=== PATIENT | female | born 1995 | race Caucasian/White ===

== ENCOUNTER 2024-12-08 09:21 | Outpatient (AMB) | payer MEDICAID, SELFPAY ==
[2024-12-08 09:27] VITALS: BP 109/68; PULSE 76; RESP 16; TEMP 36.6; O2SAT 97; BMI 28.7
--- NOTE | 2024-12-08 09:27 | OBCLNT_ITS ---
Vital Signs 12/08/24 09:27 Height 1.63 m Height Method Stated Weight 75.92 kg Weight Measurement Method Standing Scale BMI 28.7 BP 109/68 Blood Pressure Source Automatic Cuff Blood Pressure Location Left Upper Arm Position Sitting Respiration 16 Pulse 76 Pulse Source Monitor Temp 97.8 F Temp Source Oral Pulse Oximetry (%) 97 Oxygen Delivery Method Room Air Allergies/Home Meds Allergies & Medications Allergies No Known Allergies Allergy (Verified 12/08/24 09:31) Medication Reconciliation No Known Home Medications 12/08/24 [History Confirmed 12/08/24] Intake Visit Data Collection New Patient or Established: New Patient (never been to [facility]) Reason for Visit:: TRANSFER INITIAL CARE Seen by Clinical Staff ONLY (RN/MA): No Neurodiagnostic Technologist Required: No Do You Feel Safe at Home: Yes Authorities Contacted: N/A PCP or OBGYN visit in last 3 months: Yes Hx Now: No Are you currently on any form of Control: No Last menstrual period: 07/02/24 Pain Present Currently: No Pain Scale Used: [place]-Brooks/Numerical Pain scale:: 0 Smoking Status Smoking Status: Never smoker Questionnaires Covid-19 Vaccine Questionnaire Has patient been vacinated for Covid-19 Have you been vacinated for Covid-19: Yes PHQ-9 PHQ-2 Over the last 2 weeks, how often have you been bothered by any of the following problems? 1. Little interest or pleasure in doing things: not at all 2. Feeling down, depressed, or hopeless: not at all Total score: 0 PHQ-9 3. Trouble falling or staying asleep, or sleeping too much: Not at all 4. Feeling tired or having little energy: Not at all 5. Poor appetite or overeating: Not at all 6. Feeling bad about yourself - or that you are a failure or have let yourself or your family down: Not at all 7. Trouble concentrating on things, such as reading the newspaper or watching television: Not at all 8. Moving or speaking so slowly that other people could have noticed? - Or the opposite - being so fidgety or restless that you have been moving around a lot more than usual: not at all 9. Thoughts that you would be better off or of hurting yourself in some way: Not at all Total score: 0 Source: Developed by Drs. Jorge Alberto Castillo, Michelle Grullon, Chris Cuevas and colleagues, with an educational jase from [employer] Depression screen completed yes Social History Living Situation History Marital Status: Life Partner Lives With: Family Housing: House Tobacco History Smoking Status: Never smoker Second Hand Smoke Exposure: No Alcohol History Alcohol Intake: Former Alcohol Intake Frequency: holidays/special occasions only Domestic Abuse History Do You Feel Safe at Home: Yes History of Present Illness HPI Narrative 29Years old at gestational age?based on last menstrual period of dated?07/02/2024 and US done 11/22/2024 at 20.5 weeks .EDC is 04/08/2025 No complaints so far Here for first visit at [facility]/ Ob transfer from [facility] LPS LMP Ultrasound medical problems Allergies Surgical history social history OB Initial Visit Menstrual History Menstrual reliability: definite Flow: normal Menstrual regularity: regular Monthly: Yes Age at menarche: 14 On control pills at conception: No Associated symptoms (LMP): Denies amenorrhea, nausea, vomiting, fatigue, breast tenderness, urinary frequency, irritability, bloating or other OB History : 1 Infection History & Risk Evaluation History of STDs: none Genetic Screening & History Genetic Screening/Teratology Counseling - Includes patient, baby's father, or an yone in either family with: 1. Patient's age 35 years or older as of estimated date of delivery: No 2. Thalassemia (Wolof, Maori, Mediterranean, or Background); MCV less than 80: No 3. Neural Tube Defect (Meningomyelocele, Spina Bifida, or Anencephaly): No 4. Congenital Heart Defect: No 5. Down Syndrome: No 6. Darshan-Sachs (Ashkenazi Baptist, Cajun, Anguillan [place]): No 7. Sebastien Disease (Ashkenazi Baptist): No 8. Familial Dysautonomia (Ashkenazi Baptist): No 9. Sickle Cell Disease or Trait (): No 10. Hemophilia or other blood disorders: No 11. Muscular Dystrophy: No 12. Cystic Fibrosis: No 13. Costilla's Chorea: No 14. Mental Retardation/Autism: No 15. Other inherited genetic or chromosomal disorder: No 16. Maternal Metabolic Disorder (EG,TYPE 1 Diabetes, PKU): No 17. Patient or baby's father had a child with defects not listed above: No 18. Recurrent loss or a stillbirth: No 19. Medications (including supplements, vitamins, herbs or otc drugs)/illicit/recreational drugs/alcohol since last menstrual period: No 20. Any other: No Infection History 1. Live with someone with TB or exposed to TB: No 2. Rash or viral illness since last menstrual period: No 3. Hepatitis B,C: No Other (see comments) Source: [employer] Review of Systems Constitutional Constitutional: Denies fatigue Gastrointestinal Gastrointestinal: Denies bloating, Denies nausea and Denies vomiting Genitourinary Genitourinary: Denies amenorrhea and Denies urinary frequency Psychiatric Psychiatric: Denies irritability Endocrine Endocrine: Denies fatigue Office Procedures OBC Clinic LOC & Office Proc's Nursing/Assessment Patient Status: Initial/New Patient OB Clinic Nursing Assessment: Medication Reconciliation, Update PMH in EMR and Vital Signs OB Clinic Coordination of Care: Complex Care and Chronic Disease 1-5, Consent,records obtained, informed consent, Education Simp Pt/Fam, Lab and Imaging orders, Results/Orders obtained and Staff clarify orders Special Needs: Heart tones New Patient Charge New Patient Point Assignment: [id number] New Patient Point Charge: PRODUCT SCIENTIST Level 4 ([id number]) Assessment & Plan Diagnosis / Problem List (1) : Status: Acute
--- NOTE | 2024-12-08 09:49 | OBCLNT_ITS ---
<Statement entered by Ann Brenner MD - 12/11/24 09:34> this is a second same document Vital Signs 12/08/24 09:27 12/08/24 10:14 Height 1.63 m Height Method Stated Weight 75.92 kg Weight Measurement Method Standing Scale BMI 28.7 BP 109/68 109/68 Blood Pressure Source Automatic Cuff Blood Pressure Location Left Upper Arm Position Sitting Respiration 16 16 Pulse 76 76 Pulse Source Monitor Temp 97.8 F 97.8 F Temp Source Oral Pulse Oximetry (%) 97 97 Oxygen Delivery Method Room Air Allergies/Home Meds Allergies & Medications Allergies No Known Allergies Allergy (Verified 12/08/24 09:31) Medication Reconciliation No Known Home Medications 12/08/24 [History Confirmed 12/08/24] Intake Visit Data Collection New Patient or Established: New Patient (never been to [facility]) Reason for Visit:: care Do You Feel Safe at Home: Yes Authorities Contacted: N/A PCP or OBGYN visit in last 3 months: No Smoking Status Smoking Status: Never smoker Questionnaires Covid-19 Vaccine Questionnaire Has patient been vacinated for Covid-19 Have you been vacinated for Covid-19: Yes PHQ-9 PHQ-2 Over the last 2 weeks, how often have you been bothered by any of the following problems? 1. Little interest or pleasure in doing things: not at all PHQ-9 3. Trouble falling or staying asleep, or sleeping too much: Not at all 4. Feeling tired or having little energy: Not at all 5. Poor appetite or overeating: Not at all 6. Feeling bad about yourself - or that you are a failure or have let yourself or your family down: Not at all 7. Trouble concentrating on things, such as reading the newspaper or watching television: Not at all 8. Moving or speaking so slowly that other people could have noticed? - Or the opposite - being so fidgety or restless that you have been moving around a lot more than usual: not at all Source: Developed by Drs. Jorge Alberto Castillo, Michelle Grullon, Chris Cuevas and colleagues, with an educational jase from [employer]. Social History Living Situation History Marital Status: Life Partner Lives With: Family Housing: House Tobacco History Smoking Status: Never smoker Second Hand Smoke Exposure: No Alcohol History Alcohol Intake: Former Alcohol Intake Frequency: holidays/special occasions only Domestic Abuse History Do You Feel Safe at Home: Yes History of Present Illness HPI Narrative ?29 Years old at gestational age22.5 weeks based on last menstrual period of dated 07/02/2024 and confirmed by US at 20.5 weeks on . 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 Past Medical History: Yes Psychiatric Problems (generalized Anxiety Disorder / early on medication and now stoppe) OB Initial Visit OB Flowsheet OB Flowsheet Initial Weight: Not Recorded Date -?-?-?-?-?-?-?-?-?-?-?-?- EGA Weight BP Alb Glu CTX Pres Fundal ht FHR Mov Dilation Station Effacement Hx Notes Visit Note 12/08/24 -?-?-?-?-?-?-?-?-?-?-?-?- 22w 5d 75.92 kg 109/68 109/68 23 148 active ordered RPR,CBC and GTT 1 hour for 24 to 28 weeks light ambulator y duty note / has anatomy scan on 12/26/2024 and will follow in 4 weeks Menstrual History Menstrual reliability: definite Flow: normal Menstrual regularity: regular OB History : 1 Para: 0 Infection History & Risk Evaluation History of STDs: none HIV risk evaluation: low risk Hepatitis B risk evaluation: low risk Patient or partner has history of Genital Herpes: No Genetic Screening & History Genetic Screening/Teratology Counseling - Includes patient, baby's father, or anyone in either family with: 1. Patient's age 35 years or older as of estimated date of delivery: No 2. Thalassemia (Latvian, Nicaraguan, Mediterranean, or Background); MCV less than 80: No 3. Neural Tube Defect (Meningomyelocele, Spina Bifida, or Anencephaly): No 4. Congenital Heart Defect: No 5. Down Syndrome: No 6. Darshan-Sachs (Ashkenazi Hindu, Cajun, Turkish Cameroonian): No 7. Sebastien Disease (Ashkenazi Hindu): No 8. Familial Dysautonomia (Ashkenazi Hindu): No 9. Sickle Cell Disease or Trait (): No 10. Hemophilia or other blood disorders: No 11. Muscular Dystrophy: No 12. Cystic Fibrosis: No 13. Bosque's Chorea: No 14. Mental Retardation/Autism: No 15. Other inherited genetic or chromosomal disorder: No 16. Maternal Metabolic Disorder (EG,TYPE 1 Diabetes, PKU): No 17. Patient or baby's father had a child with defects not listed above: No 18. Recurrent loss or a stillbirth: No 19. Medications (including supplements, vitamins, herbs or otc drugs)/illicit/recreational drugs/alcohol since last menstrual period: Yes ( on celexa and propranalol early / Generalized Anxiety Disorder) Infection History Other (see comments) Source: [employer] Review of Systems Review of Systems Narrative Review of Systems: Reviewed all 14 point review of systems and all is negative except as noted Systems Reviewed: All systems reviewed, normal except as documented Exam Narrative Physical exam: Size equal to dates uterus non tender bedside US shows active fetus non tender FHR is 148bpm feta presentation is variable Office Procedures OBC Clinic LOC & Office Proc's Nursing/Assessment Patient Status: Initial/New Patient OB Clinic Nursing Assessment: Medication Reconciliation, Update PMH in EMR and Vital Signs OB Clinic Coordination of Care: Complex Care and Chronic Disease 1-5, Consent,records obtained, informed consent, Education Simp Pt/Fam, Lab and Imaging orders, Results/Orders obtained and Staff clarify orders Special Needs: Heart tones New Patient Charge New Patient Point Assignment: 1134 New Patient Point Charge: MODEL SET ARTIST Level 4 ([id number]) Assessment & Plan Diagnosis / Problem List (1) : Status: Acute (2) Generalized anxiety disorder: Status: Acute Plan plan RPR and CBC and i hour GTT between 24 and 28 weeks Light duty and follow up in 4 weeks Additional Assessment ?29 Years old at gestational age22.5 weeks based on last menstrual period of dated 07/02/2024 and confirmed by US at 20.5 weeks on . 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 and would like to be on light duty and stay in [place] Additional Plan as above Follow Up: 4 Weeks (light duty letter given )
[2024-12-08 10:14] VITALS: BP 109/68; PULSE 76; RESP 16; TEMP 36.6; O2SAT 97
== END 2024-12-08 09:59 | disposition home or self-care (01) ==
LOC: HODSOBC 09:21
PROVIDERS: Supervising Provider Obstetrics & Gynecology; Visit Provider Obstetrics & Gynecology
DX: O09.892 Supervision of other high risk pregnancies, second trimester (principal); O99.342 Other mental disorders complicating pregnancy, second trimester; F41.1 Generalized anxiety disorder; Z3A.22 22 weeks gestation of pregnancy
CPT/HCPCS: 99204; G0463

== ENCOUNTER 2024-12-28 15:10 | Outpatient (AMB) | payer MEDICAID, SELFPAY ==
[2024-12-28 15:17] VITALS: BP 119/70; PULSE 74; RESP 74; TEMP 36.6; O2SAT 98; BMI 29.0
--- NOTE | 2024-12-28 15:17 | AMB.OBVISIT ---
Vital Signs 12/28/24 15:17 Height 1.63 m Height Method Stated Weight 77.281 kg Weight Measurement Method Standing Scale BMI 29.0 BP 119/70 Blood Pressure Source Automatic Cuff Blood Pressure Location Right Upper Arm Position Sitting Respiration 74 H Pulse 74 Pulse Source Monitor Temp 97.8 F Temp Source Temporal Artery Scan Pulse Oximetry (%) 98 Oxygen Delivery Method Room Air Allergies/Home Meds Allergies & Medications Allergies No Known Allergies Allergy (Verified 12/28/24 15:17) Medication Reconciliation ferrous sulfate 325 mg (65 mg iron) tablet 325 mg PO QDAY #60 tabs 12/28/24 [Rx] Intake Visit Data Collection New Patient or Established: Established Patient (seen at [facility] within 3 years) Reason for Visit:: OBC Seen by Clinical Staff ONLY (RN/MA): No Quality Assurance Assistant Required: No Do You Feel Safe at Home: Yes Authorities Contacted: N/A PCP or OBGYN visit in last 3 months: Yes Date of Last PCP or OBGYN visit: 12/08/24 Hx Now: Yes Are you currently on any form of Control: No Pain Present Currently: No Pain Scale Used: [place]-Brooks/Numerical Pain scale:: 0 Smoking Status Smoking Status: Never smoker Immunizations Flu Vaccine in the Last 12 Months: No Flu Vaccine Exclusion Criteria: No Exclusion Criteria Questionnaires Covid-19 Vaccine Questionnaire Has patient been vacinated for Covid-19 Have you been vacinated for Covid-19: No PHQ-9 PHQ-2 Over the last 2 weeks, how often have you been bothered by any of the following problems? 1. Little interest or pleasure in doing things: not at all 2. Feeling down, depressed, or hopeless: not at all Total score: 0 PHQ-9 3. Trouble falling or staying asleep, or sleeping too much: Not at all 4. Feeling tired or having little energy: Not at all 5. Poor appetite or overeating: Not at all 6. Feeling bad about yourself - or that you are a failure or have let yourself or your family down: Not at all 7. Trouble concentrating on things, such as reading the newspaper or watching television: Not at all 8. Moving or speaking so slowly that other people could have noticed? - Or the opposite - being so fidgety or restless that you have been moving around a lot more than usual: not at all 9. Thoughts that you would be better off or of hurting yourself in some way: Not at all Total score: 0 If you checked off any problems, how difficult have these problems made it for you to do your work, take care of things at home, or get along with other people?: not difficult at all Source: Developed by Drs. Jorge Alberto Castillo, Michelle Grullon, Chris Cuevas and colleagues, with an educational jase from [employer]. Depression screen completed yes Social History Living Situation History Marital Status: Lives With: Family Housing: House Tobacco History Smoking Status: Never smoker Second Hand Smoke Exposure: No Alcohol History Alcohol Intake: Former Alcohol Intake Frequency: holidays/special occasions only Domestic Abuse History Do You Feel Safe at Home: Yes PRACTICING MD ANESTHESIOLOGIST: Past Medical History Past Medical History: Yes Psychiatric Problems (generalized Anxiety Disorder / early on medication and now stoppe) Care OB Visit Log OB Flowsheet Initial Weight: Not Recorded Date <del>?</del> EGA Weight BP Alb Glu CTX Pres Fundal ht FHR Mov Dilation Station Effacement Hx Notes Visit Note 12/08/24 <del>?</del> 22w 5d 75.92 kg 109/68 109/68 23 148 active ordered RPR,CBC and GTT 1 hour for 24 to 28 weeks light ambulatory duty note / has anatomy scan on 12/26/2024 and will follow in 4 weeks 12/28/24 <del>?</del> 25w 4d 77.281 kg 119/70 26 48 active BERHANE Calculator Estimated Delivery Date Method Current WG Current Estimate 04/08/25 LMP (Certain) 25w 4d Other Estimates 04/06/25 Ultrasound #1 25w 6d Notes Visit Date: 12/28/24 Last Updated by: Ann Brenner MD ?29 Years old at gestational age25.4 weeks based on last menstrual period of dated 07/02/2024 and confirmed by US at 20.5 weeks on . No complaints so far Here for f/u visit/ transfer from [facility] / Excuse from dental X ray exposure Her one hour GTT is 149 and will order 3 hour GTT /HbA1c is 4.9 Hb is 9 and will order oral iron RPR is non reactive Follow up in 4 weeks LPS 1 year ago LMP as above Ultrasound as above medical problems ROEL Allergies as noted Surgical history none social history none / except anxious about working outside [place] office and would like to be on light duty and stay in [place] Office Procedures OBC Clinic LOC & Office Proc's Nursing/Assessment Patient Status: Established Patient OB Clinic Nursing Assessment: Medication Reconciliation, Update PMH in EMR and Vital Signs OB Clinic Coordination of Care: Complex Care and Chronic Disease 1-5, Education Complex Pt/Fam, Consent,records obtained, informed consent, Lab and Imaging orders, Results/Orders obtained and Staff clarify orders Special Needs: Heart tones Established Patient Charge Established Patient Point Assignment: 140 Established Patient Point Charge: EP Level 4 (120-155) Assessment & Plan Diagnosis / Problem List (1) : Status: Acute Qualifiers: Weeks of gestation: 25 weeks Qualified Code(s): Z3A.25 - 25 weeks gestation of (2) Generalized anxiety disorder: Status: Acute (3) Anemia affecting : Status: Acute Plan order 3 hour GTT for abnormal 1 hour GTT also order oral iron 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
== END 2024-12-28 15:49 | disposition home or self-care (01) ==
LOC: HODSOBC 15:10
PROVIDERS: Supervising Provider Obstetrics & Gynecology; Visit Provider Obstetrics & Gynecology
DX: O09.892 Supervision of other high risk pregnancies, second trimester (principal); O99.342 Other mental disorders complicating pregnancy, second trimester; F41.1 Generalized anxiety disorder; O99.012 Anemia complicating pregnancy, second trimester; Z3A.25 25 weeks gestation of pregnancy
CPT/HCPCS: 99214; G0463

== ENCOUNTER 2025-02-07 10:19 | Outpatient (AMB) | payer MEDICAID, SELFPAY ==
--- NOTE | 2025-02-07 10:47 | OBCLNT_ITS ---
Vital Signs 02/07/25 10:55 Height 1.63 m Height Method Stated Weight 82.611 kg Weight Measurement Method Standing Scale BMI 31.1 BP 99/64 Blood Pressure Source Automatic Cuff Blood Pressure Location Left Upper Arm Position Sitting Respiration 16 Pulse 79 Pulse Source Monitor Temp 97.9 F Temp Source Oral Pulse Oximetry (%) 97 Oxygen Delivery Method Room Air Allergies/Home Meds Allergies & Medications Allergies No Known Allergies Allergy (Verified 02/07/25 10:56) Medication Reconciliation ferrous sulfate 325 mg (65 mg iron) tablet 325 mg PO QDAY #60 tabs 12/28/24 [Rx Confirmed 02/07/25] Immunizations Immunizations Flu Vaccine in the Last 12 Months: Yes Flu Vaccine Exclusion Criteria: Already Received Care OB Visit Log OB Flowsheet Initial Weight: Not Recorded Date -?-?-?-?-?-?-?-?-?-?-?-?- EGA Weight BP Alb Glu CTX Pres Fundal ht FHR Mov Dilation Station Effacement Hx Notes Visit Note 12/08/24 -?-?-?-?-?-?-?-?--?-?-?-?- 22w 5d 75.92 kg 109/68 109/68 23 148 active ordered RPR,CBC and GTT 1 hour for 24 to 28 weeks light ambulator y duty note / has anatomy scan on 12/26/2024 and will follow in 4 weeks 12/28/24 -?-?-?-?-?-?-?-?-?-?-?-?- 25w 4d 77.281 kg 119/70 26 48 active 01/23/25 -?-?-?-?-?-?-?-?-?-?-?-?- 29w 2d 80.343 kg 111/72 29 147 active 02/07/25 -?-?-?-?-?-?-?-?-?-?-?-?- 31w 3d 82.611 kg 99/64 31 142 active BERHANE Calculator Estimated Delivery Date Method Current WG Current Estimate 04/08/25 LMP (Certain) 32w 4d Other Estimates 04/06/25 Ultrasound #1 32w 6d Notes Visit Date: 02/07/25 Last Updated by: Ann Brenner MD 29 years old at 31.3 weeks / confirmed by a 20 week US / anemia Hb was 9 / One hour GTT was 149 / 3 hour is normal on 01/18/2025/ CBC on 02/01/2025 Hb is 10.2 / RPR is NR Flu vaccine received last visit / kick count counselled / revised work restriction given last visit / feels sore in he pelvic/ pubic area/ advised gentle stretching exercises / continue oral iron / continue kick count and labor precautions / uterus is non tender Visit Date: 01/23/25 Last Updated by: Ann Brenner MD 29 years old at 29.2 weeks / confirmed by a 20 week US / anemia Hb was 9 / One hour GTT was 149 / 3 hour is normal on 01/18/2025/ CBC before next visit Flu vaccine today / kick count counselled / revised work restriction given Visit Date: 12/28/24 Last Updated by: Ann Brenner MD ?29 Years old at gestational age25.4 weeks based on last menstrual period of dated 07/02/2024 and confirmed by US at 20.5 weeks on . 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 and would like to be on light duty and stay in [place] Office Procedures OBC Clinic LOC & Office Proc's Nursing/Assessment Patient Status: Established Patient OB Clinic Nursing Assessment: Medication Reconciliation, Update PMH in EMR and Vital Signs OB Clinic Coordination of Care: Complex Care and Chronic Disease 1-5, Consent,records obtained, informed consent, Education Simp Pt/Fam, 1 Ins Authorization, Lab and Imaging orders, Results/Orders obtained and Staff clarify orders Special Needs: Heart tones Established Patient Charge Established Patient Point Assignment: 150 Established Patient Point Charge: EP Level 4 (120-155) Assessment & Plan Diagnosis / Problem List (1) Anemia affecting : Status: Acute Qualifiers: Trimester: third trimester Qualified Code(s): O99.013 - Anemia complicating , third trimester (2) Generalized anxiety disorder: Status: Acute (3) : Status: Acute Qualifiers: Weeks of gestation: 25 weeks Qualified Code(s): Z3A.25 - 25 weeks gestation of Assessment and Plan: Size equal to dates uterus non tender no contractions non tender FHR is 142 Plan 29 years old at 31.3 weeks / confirmed by a 20 week US / anemia Hb was 9 / One hour GTT was 149 / 3 hour is normal on 01/18/2025/ CBC on 02/01/2025 Hb is 10.2 / RPR is NR Flu vaccine received last visit / kick count counselled / revised work restriction given last visit / feels sore in he pelvic/ pubic area/ advised gentle stretching exercises / continue oral iron / continue kick count and labor precautions Additional Plan Follow Up: 2 to 3 weeks
[2025-02-07 10:55] VITALS: BP 99/64; PULSE 79; RESP 16; TEMP 36.6; O2SAT 97; BMI 31.1
== END 2025-02-07 11:09 | disposition home or self-care (01) ==
PROVIDERS: Supervising Provider Obstetrics & Gynecology; Visit Provider Obstetrics & Gynecology
DX: O09.893 Supervision of other high risk pregnancies, third trimester (principal); O99.013 Anemia complicating pregnancy, third trimester; O99.343 Other mental disorders complicating pregnancy, third trimester; F41.1 Generalized anxiety disorder; Z3A.31 31 weeks gestation of pregnancy
CPT/HCPCS: 99214; G0463

== ENCOUNTER 2025-02-27 09:07 | Outpatient (AMB) | payer MEDICAID, SELFPAY ==
--- NOTE | 2025-02-27 09:22 | OBCLNT_ITS ---
Vital Signs 02/27/25 09:23 Height 1.63 m Height Method Stated Weight 8391.459 g Weight Measurement Method Standing Scale BMI 3.1 BP 128/74 Blood Pressure Source Automatic Cuff Blood Pressure Location Right Upper Arm Position Sitting Respiration 18 Pulse 87 Pulse Source Monitor Temp 98.0 F Temp Source Temporal Artery Scan Pulse Oximetry (%) 97 Oxygen Delivery Method Room Air Allergies/Home Meds Allergies & Medications Allergies No Known Allergies Allergy (Verified 02/27/25 09:24) Medication Reconciliation ferrous sulfate 325 mg (65 mg iron) tablet 325 mg PO QDAY #60 tabs 12/28/24 [Rx Confirmed 02/27/25] Immunizations Immunizations Flu Vaccine in the Last 12 Months: No Flu Vaccine Exclusion Criteria: No Exclusion Criteria Care OB Visit Log OB Flowsheet Initial Weight: Not Recorded Date -?-?-?-?-?-?-?-?-?-?-?-?- EGA Weight BP Alb Glu CTX Pres Fundal ht FHR Mov Dilation Station Effacement Hx Notes Visit Note 12/08/24 -?-?-?-?-?-?-?-?-?-?-?-?- 22w 5d 75.92 kg 109/68 109/68 23 148 active ordered RPR,CBC and GTT 1 hour for 24 to 28 weeks light ambulator y duty note / has anatomy scan on 12/26/2024 and will follow in 4 weeks 12/28/24 -?-?-?-?-?-?-?-?-?-?-?-?- 25w 4d 77.281 kg 119/70 26 48 active 01/23/25 -?-?-?-?-?-?-?-?-?-?-?-?- 29w 2d 80.343 kg 111/72 29 147 active 02/07/25 -?-?-?-?-?-?-?-?-?-?-?-?- 31w 3d 82.611 kg 99/64 31 142 active 02/27/25 -?-?-?-?-?-?-?-?-?-?-?-?- 34w 2d 8391.459 g 128/74 34 144 active 29 years old at 31.3 weeks / confirmed by a 20 week US / anemia Hb was 9 / One hour GTT was 149 / 3 hour is normal on 01/18/2025/ CBC on 02/01/2025 Hb is 10.2 / RPR is NR [facility] Calculator Estimated Delivery Date Method Current WG Current Estimate 04/08/25 LMP (Certain) 34w 2d Other Estimates 04/06/25 Ultrasound #1 34w 4d Notes Visit Date: 02/27/25 Last Updated by: Ann Brenner MD today 34.2 weeks / h/o anemia / she states she has difficulty sleeping and has to get up often to void/ she can go on disability from Mar [id number] / she can get a breast pump / no contractions / urine frequency could be due to head pressing on the bladder / plan UA/ possible c/s Visit Date: 02/07/25 Last Updated by: Ann Brenner MD 29 years old at 31.3 weeks / confirmed by a 20 week US / anemia Hb was 9 / One hour GTT was 149 / 3 hour is normal on 01/18/2025/ CBC on 02/01/2025 Hb is 10.2 / RPR is NR Flu vaccine received last visit / kick count counselled / revised work restriction given last visit / feels sore in he pelvic/ pubic area/ advised gentle stretching exercises / continue oral iron / continue kick count and labor precautions / uterus is non tender Visit Date: 01/23/25 Last Updated by: Ann Brenner MD 29 years old at 29.2 weeks / confirmed by a 20 week US / anemia Hb was 9 / One hour GTT was 149 / 3 hour is normal on 01/18/2025/ CBC before next visit Flu vaccine today / kick count counselled / revised work restriction given Visit Date: 12/28/24 Last Updated by: Ann Brenner MD ?29 Years old at gestational age25.4 weeks based on last menstrual period of dated 07/02/2024 and confirmed by US at 20.5 weeks on . No complaints so far Here for f/u visit/ transfer from [facility] / Excuse from dental X ray exposure Her one hour GTT is 149 and will order 3 hour GTT /HbA1c is 4.9 Hb is 9 and will order oral iron RPR is non reactive Follow up in 4 weeks LPS 1 year ago LMP as above Ultrasound as above medical problems ROEL Allergies as noted Surgical history none social history none / except anxious about working outside [place] office and would like to be on light duty and stay in [place] Office Procedures O[facility] Clinic LOC & Office Proc's Nursing/Assessment Patient Status: Established Patient OB Clinic Nursing Assessment: Medication Reconciliation, Update PMH in EMR and Vital Signs OB Clinic Coordination of Care: Complex Care and Chronic Disease 1-5, Education Complex Pt/Fam, Consent,records obtained, informed consent, Lab and Imaging orders, Results/Orders obtained and Staff clarify orders Special Needs: Heart tones Established Patient Charge Established Patient Point Assignment: 140 Established Patient Point Charge: EP Level 4 (120-155) Assessment & Plan Diagnosis / Problem List (1) Anemia affecting : Status: Acute Qualifiers: Trimester: third trimester Qualified Code(s): O99.013 - Anemia complicating , third trimester Assessment and Plan: taking oral iron (2) Generalized anxiety disorder: Status: Acute Plan: patient coping well (3) Urinary frequency: Status: Acute Plan: Ua negative in office Assessment and Plan: plan UA and also disability from 03/11/2025 / breast pump / follow up in 2 weeks Additional Plan Follow Up: 2 Weeks
[2025-02-27 09:23] VITALS: BP 128/74; PULSE 87; RESP 18; TEMP 36.7; O2SAT 97
== END 2025-02-27 10:13 | disposition home or self-care (01) ==
LOC: HODSOBC 09:07
PROVIDERS: Supervising Provider Obstetrics & Gynecology; Visit Provider Obstetrics & Gynecology
DX: O09.893 Supervision of other high risk pregnancies, third trimester (principal); O99.013 Anemia complicating pregnancy, third trimester; O99.343 Other mental disorders complicating pregnancy, third trimester; F41.1 Generalized anxiety disorder; R35.0 Frequency of micturition; O99.891 Other specified diseases and conditions complicating pregnancy; Z3A.34 34 weeks gestation of pregnancy
CPT/HCPCS: 99214; G0463